=== PATIENT | female | born 1995 | race Caucasian/White ===

== ENCOUNTER 2020-10-21 20:04 | Emergency (ER) | payer MEDICAID ==
[~2020-10-21] VITALS: Ht 167.6 cm; Wt 68.0 kg
[2020-10-21 20:15] VITALS: BP 124/79
--- NOTE | 2020-10-21 20:32 | NUR ---
PT ELEAZAR JOSEPH. TAKEN TO BED 12
--- NOTE | 2020-10-21 20:32 | NUR ---
25/F BIBA WITH C/O HEROIN OVERDOSE. PT WAS GIVEN NARCAN 4.5 IN AMBULANCE. PT CURRENTLY AOX4, PERRL, GCS 15. DENOES ANY PAIN OR DISCOMFORT. PT HOOKED TO MONITOR. MEDHX- DRUG ABUSE NKA
[2020-10-21] MEDS ORDERED: NALO4SPR NS (20:54)
[2020-10-21 21:25] VITALS: BP 102/54
--- NOTE | 2020-10-21 21:25 | NUR ---
Patient discharged with v/s stable. Written and verbal after care instructions given and explained. Patient alert, oriented and verbalized understanding of instructions. Ambulatory with steady gait. All questions addressed prior to discharge. ID band AND IV ACCESS removed. Patient advised to follow up with PMD. Rx of NARCAN given. Patient educated on indication of medication including possible reaction and side effects. Opportunity to ask questions provided and answered.
== END 2020-10-21 21:25 | disposition home or self-care (01) ==
LOC: MED 20:04
DX: T40.1X1A Poisoning by heroin, accidental (unintentional), initial encounter (principal); Z79.899 Other long term (current) drug therapy; Y92.89 Other specified places as the place of occurrence of the external cause
CPT/HCPCS: 99283

== ENCOUNTER 2020-11-01 14:00 | Emergency (ER) | payer MEDICAID ==
[~2020-11-01] VITALS: Ht 167.6 cm; Wt 68.0 kg
[~2020-11-01 14:00] MED LIST: NALO4SPR NS
[2020-11-01 14:08] VITALS: BP 105/60
--- NOTE | 2020-11-01 14:13 | NUR ---
PT TO WAIT IN LOBBY
[2020-11-01] MEDS ORDERED: GABA100C PO (14:57)
--- NOTE | 2020-11-01 15:14 | NUR ---
PT WAS GIVEN CRUTCHES AND WAS TAUGHT HOW TO USED CRUTCHES VIA Hover 3D. PT IS SIGNED PAPER WORK RELATING TO CRUTCHES. ERMD WAS NOTIFED.
[2020-11-01 15:24] VITALS: BP 105/60
--- NOTE | 2020-11-01 15:24 | NUR ---
Patient discharged with v/s stable. Written and verbal after care instructions given and explained. Patient alert, oriented and verbalized understanding of instructions. Ambulatory with steady gait. All questions addressed prior to discharge. ID band removed. Patient advised to follow up with PMD. Rx of GABAPENTIN given. Patient educated on indication of medication including possible reaction and side effects. Opportunity to ask questions provided and answered.
== END 2020-11-01 15:24 | disposition home or self-care (01) ==
LOC: MED 14:00
DX: G62.9 Polyneuropathy, unspecified (principal); F17.210 Nicotine dependence, cigarettes, uncomplicated; F12.90 Cannabis use, unspecified, uncomplicated; Z79.899 Other long term (current) drug therapy
CPT/HCPCS: 99283